=== PATIENT | male | born 1985 | race African-American/Black ===

== ENCOUNTER 2023-04-02 20:59 | Emergency (ER) | payer SELFPAY ==
[~2023-04-02] VITALS: Ht 180.3 cm; Wt 113.0 kg
[2023-04-02 21:17] VITALS: BP 141/88; PULSE 98; RESP 16; TEMP 97.9; O2SAT 96
== END 2023-04-03 00:35 | disposition left against medical advice (07) ==
LOC: EDBD → ER 20:59
DX: F25.9 Schizoaffective disorder, unspecified (principal)
CPT/HCPCS: 99283

== ENCOUNTER 2023-04-04 11:15 | Emergency (ER) | payer MEDICAID ==
[~2023-04-04] VITALS: Ht 172.7 cm; Wt 113.0 kg
[2023-04-04 11:22] VITALS: O2SAT 98
[2023-04-04 12:04] LABS: BASOPHILS % 0.5 % (0.0-2.0); HEMATOCRIT. 42.3 % (42.0-52.0); HEMOGLOBIN. 13.8 g/dL (14.0-18.0); LYMPHOCYTES % 21.1 % (20.0-50.0); MEAN CORPUSCULAR HEMOGLOBIN 26.2 pg (28.0-32.0); MEAN CORPUSCULAR HGB CONC 32.5 g/dL (31.0-37.0); MEAN CORPUSCULAR VOLUME 80.7 fL (80.0-94.0); MEAN PLATELET VOLUME 7.8 fl (7.4-10.4); MONOCYTES % 7.9 % (2.0-8.0); NEUTROPHILS % 68.5 % (40.0-76.0); PLATELET 256 x1000/uL (130-400); RED BLOOD CELL COUNT 5.25 mill/uL (4.7-6.1); RED CELL DISTRIBUTION WIDTH 13.9 % (11.6-14.6); WHITE BLOOD COUNT 10.5 x1000/uL (4.5-11.0)
[2023-04-04 12:23] LABS: ALANINE AMINOTRANSFERASE 50 IU/L (10-49); ALBUMIN 4.3 g/dL (3.2-4.8); ASPARTATE AMINOTRANSFERASE 92 IU/L (<34); BILIRUBIN TOTAL 0.9 mg/dL (0.1-1.0); CALCIUM 9.3 mg/dL (8.7-10.4); CARBON DIOXIDE 19 mEq/L (21-32); CHLORIDE 107 mEq/L (98-107); ETHANOL BLOOD 31 mg/dL (<10); GLUCOSE 100 mg/dL (70-105); POTASSIUM 3.8 mEq/L (3.5-5.1); PROTEIN TOTAL 7.6 g/dL (6.0-8.3); SODIUM 140 mEq/L (136-145); UREA NITROGEN BLOOD 19 mg/dL (9-23)
[2023-04-04 16:30] LABS: CLARITY URINE CLEAR (CLEAR); COLOR URINE YELLOW (YELLOW); GLUCOSE URINE NEGATIVE (NEGATIVE); KETONES URINE TRACE (NEGATIVE); LEUKOCYTE ESTERASE URINE NEGATIVE (NEGATIVE); NITRITE URINE NEGATIVE (NEGATIVE); OCCULT BLOOD URINE NEGATIVE (NEGATIVE); PH URINE 5.5 (4.5-8.0); PROTEIN URINE NEGATIVE (NEGATIVE); SPECIFIC GRAVITY URINE 1.025 (1.005-1.030); UROBILINOGEN URINE 0.2 E.U./dL (0.2-1.0)
[2023-04-04 16:38] LABS: *AMPHETAMINES SCREEN URINE NEGATIVE (NEGATIVE); *BARBITURATES SCREEN URINE NEGATIVE (NEGATIVE); *BENZODIAZEPINES SCREEN URINE NEGATIVE (NEGATIVE); *COCAINE SCREEN URINE NEGATIVE (NEGATIVE); CANNABINOID URINE SCREEN NEGATIVE (NEGATIVE); ECSTASY MDMA SCREEN URINE NEGATIVE (NEGATIVE); METHADONE URINE SCREEN Neg (NEGATIVE); OPIATES URINE SCREEN NEGATIVE (NEGATIVE); PHENCYCLIDINE URINE SCREEN NEGATIVE (NEGATIVE)
[2023-04-05] MEDS ORDERED: OLANZAPINE 5MG TABLET PO SCH (06:45)
[2023-04-05] MEDS ORDERED: LORAZEPAM 1MG TABLET PO ONE (06:45)
[2023-04-05] MEDS ORDERED: OLANZAPINE 5MG TABLET ODT PO SCH (11:30)
[2023-04-05 16:36] VITALS: BP 140/72; PULSE 100; RESP 16; TEMP 98.4
== END 2023-04-05 16:59 ==
LOC: ER 12:27
DX: F23 Brief psychotic disorder (principal); Z20.822 Contact with and (suspected) exposure to COVID-19
CPT/HCPCS: 36415; 80053; 80305; 80320; 81003; 85025; 87426; 99285; G0480